=== PATIENT | female | born 1955 | race Hispanic/Latino ===

== ENCOUNTER 2018-02-13 12:25 | Observation (INO) | payer MEDICARE, OTHER ==
[~2018-02-13] VITALS: Ht 162.6 cm; Wt 99.8 kg
[2018-02-13] MEDS ORDERED: MORPHINE SULFATE 2 MG/ML SYR IV STA (13:24)
[2018-02-13] MEDS ORDERED: PANTOPRAZOLE 40 MG 10ML VIAL IV STA (13:24)
[2018-02-13] MEDS ORDERED: DIATRIZOATE MEGL/DIATRIZOA SOD 30 ML BTL PO ONE (13:54)
[2018-02-13 14:03] LABS: BASOPHILS # (AUTO) 0.1 (0.0-0.1); BASOPHILS % 0.7 % (0.0-1.0); EOSINOPHILS # (AUTO) 0.1 (0.0-0.4); EOSINOPHILS % 0.8 % (0.0-6.0); HEMATOCRIT 37.5 % (34.2-44.1); HEMOGLOBIN 13.1 g/dL (12.0-16.0); LYMPHOCYTES # (AUTO) 2.5 (1.0-3.2); MEAN CORPUSCULAR HEMOGLOBIN 29.7 pg (28-32); MEAN CORPUSCULAR HGB CONC 34.9 g/dL (31-35); MONOCYTES # (AUTO) 0.4 (0.2-0.8); MONOCYTES % 5.2 % (4.4-11.3); NEUTROPHILS # (AUTO) 4.3 (2.1-6.9); NEUTROPHILS % 58.9 % (38.7-80.0); PLATELET COUNT 247 x10e3/uL (140-360); RED BLOOD COUNT 4.41 x10e6/uL (3.6-5.1); RED CELL DISTRIBUTION WIDTH 12.5 % (11.7-14.4)
[2018-02-13 14:12] LABS: INR 0.98; PROTHROMBIN TIME 12.2 seconds (11.9-14.5)
[2018-02-13 14:21] LABS: ALBUMIN 3.6 g/dL (3.5-5.0); ALBUMIN/GLOBULIN RATIO 1.2 (0.8-2.0); ANION GAP 11.9 mmol/L (8-16); CALCIUM 9.3 mg/dL (8.4-10.2); POTASSIUM 3.9 mmol/L (3.5-5.1)
[2018-02-13] MEDS ORDERED: SODIUM CHLORIDE 0.9% 1000ML 1,000 ML IV SCH (14:45)
[2018-02-13] MEDS ORDERED: SODIUM CHLORIDE 0.9% 1000ML 1,000 ML ONE (14:52)
--- NOTE | 2018-02-13 16:21 | Diagnostic Imaging Report ---
EXAM: CT Abdomen and Pelvis WITH contrast INDICATION: \S\Lower abdominal pain, GI Bleed \S\[id number] \S\1545 COMPARISON: CT dated 06/19/2010 TECHNIQUE: Abdomen and pelvis were scanned utilizing a multidetector helical scanner from the lung base to the pubic symphysis after administration of IV contrast. Coronal and sagittal reformations were obtained. Routine protocol was performed. Scan was performed when during portal venous phase. IV CONTRAST: 100 mL of Isovue-370 ORAL CONTRAST: Gastroview COMPLICATIONS: None RADIATION DOSE: Total DLP: 830.79 mGy*cm Estimated effective dose: (DLP x 0.015 x size factor) mSv CTDIvol has been reviewed. It is below the limits set by the Radiation Protocol Committee (RPC). FINDINGS: LINES and TUBES: None. LOWER THORAX: Mild dependent atelectasis. HEPATOBILIARY: Multiple hypodensities, measuring up to 3.1 cm in the left hepatic lobe (previously 1.1 cm), with internal attenuation of simple fluid, likely cysts. No biliary ductal dilation. GALLBLADDER: No radio-opaque stones or sludge. No wall thickening. SPLEEN: No splenomegaly. PANCREAS: No focal masses or ductal dilatation. ADRENALS: No adrenal nodules KIDNEYS/URETERS: Kidneys enhance symmetrically. No hydronephrosis. No cystic or solid mass lesions. No stones. GI TRACT: No abnormal distention, wall thickening, or evidence of bowel obstruction. There are scattered diverticula within the colon without evidence of diverticulitis. Appendix is normal. PELVIC ORGANS/BLADDER: Hysterectomy. LYMPH NODES: No lymphadenopathy. VESSELS: Unremarkable. PERITONEUM / RETROPERITONEUM: No free air or fluid. BONES: Unremarkable. SOFT TISSUES: Small fat-containing umbilical hernia. IMPRESSION: 1. No acute inflammatory process in the abdomen/pelvis. 2. Redemonstration of multiple hepatic cysts, increased in size when compared to prior CT. Signed by: Dr. Jamari Harris MD on 02/13/2018 4:18 PM
[2018-02-13] MEDS ORDERED: ONDANSETRON HCL INJ 2 MG/ML VIAL IV STA (17:18)
[2018-02-13] MEDS ORDERED: MORPHINE SULFATE 4 MG/ML SYR IV PRN (17:30)
[2018-02-13] MEDS ORDERED: MORPHINE SULFATE 2 MG/ML SYR IV PRN (17:30)
[2018-02-13] MEDS ORDERED: IOPAMIDOL 370 MG/ML 200 ML INFUS..BTL INJ ONE (17:35)
[2018-02-13] MEDS ORDERED: SODIUM CHLORIDE 0.9% 50ML 50 ML ONE (17:35)
[2018-02-13] MEDS ORDERED: CYMBALTA60 MG PO (17:58)
[2018-02-13] MEDS ORDERED: ABILIFY5 MG PO (17:58)
[2018-02-13] MEDS ORDERED: ALPRAZOLAM0.5 MG PO (17:58)
[2018-02-13] MEDS ORDERED: QUETIAPINE FUM400 MG PO (17:58)
[2018-02-13] MEDS ORDERED: ZOLPIDEM TARTRA10 MG PO (18:01)
--- OUTSIDE RECORDS SUMMARY | 2018-02-13 18:19 | XMS REPORT ---
Author [facility] Address Unknown Phone Unavailable Care Team Providers Care [facility] Administrator Name Role Phone BELÉN TURNER Unavailable Unavailable Problems This patient has no known problems. Allergies, Adverse Reactions, Alerts This patient has no known allergies or adverse reactions. Medications This patient has no known medications. Results Test Description Test Time Test Comments Text Results Atomic Results Result Comments CT ABDOMEN/PELVIS W [place] [address] Patient Name: TRENT MACDONALD MR #: [id number] : 1955 Age/Sex: 62/F Req #: [id number] Adm Physician: Ordered by: GLENDA BERMUDEZ [employer] SUPERVISOR Report #: [id number] Location: ER Room/Bed: Procedure: [id number] CT/CT ABDOMEN/PELVIS W Exam Date: 02/13/18 Exam Time: 1545 REPORT STATUS: Signed EXAM: CT Abdomen and Pelvis WITH contrast INDICATION: COMPARISON: CT dated TECHNIQUE: Abdomen and pelvis were scanned utilizing a multidetector helical scanner from the lung base to the pubic symphysis after administration of IV contrast. Coronal and sagittal reformations were obtained. Routine protocol was performed. Scan was performed when during portal venous phase. IV CONTRAST: 100 mL of Isovue-370 ORAL CONTRAST: Gastroview COMPLICATIONS: None RADIATION DOSE: Total DLP: 830.79 mGy*cm Estimated effective dose: (DLP x 0.015 x size factor) mSv CTDIvol has been reviewed. It is below the limits set by the Radiation Protocol Committee (RPC). FINDINGS: LINES and TUBES : None. LOWER THORAX: Mild dependent atelectasis. HEPATOBILIARY: Multiple hypodensities, measuring up to 3.1 cm in the left hepatic lobe ( previously 1.1 cm), with internal attenuation of simple fluid, likely cysts. No biliary ductal dilation. GALLBLADDER: No radio-opaque stones or sludge. No wall thickening. SPLEEN: No splenomegaly. PANCREAS: No focal masses or ductal dilatation. ADRENALS: No adrenal nodules KIDNEYS/URETERS: Kidneys enhance symmetrically. No hydronephrosis. No cystic or solid mass lesions. No stones. GI TRACT: No abnormal distention, wall thickening, or evidence of bowel obstruction. There are scattered diverticula within the colon without evidence of diverticulitis. Appendix is normal. PELVIC ORGANS/BLADDER: Hysterectomy. LYMPH NODES: No lymphadenopathy. VESSELS: Unremarkable. PERITONEUM / RETROPERITONEUM: No free air or fluid. BONES: Unremarkable. SOFT TISSUES: Small fat- containing umbilical hernia. IMPRESSION: 1. No acute inflammatory process in the abdomen/pelvis. 2. Redemonstration of multiple hepatic cysts, increased in size when compared to prior CT. Signed by: Dr. Jamari Mercado MD on 02/13/2018 4:18 PM Dictated By: JAMARI MERCADO MD [id number] Transcribed By: IDALIA on 02/13/18 1618 COPY TO: GLENDA BERMUDEZ NP
[2018-02-13 18:41] LABS: BASOPHILS # (AUTO) 0.1 (0.0-0.1); BASOPHILS % 0.6 % (0.0-1.0); EOSINOPHILS # (AUTO) 0.1 (0.0-0.4); HEMATOCRIT 36.7 % (34.2-44.1); HEMOGLOBIN 12.7 g/dL (12.0-16.0); LYMPHOCYTES # (AUTO) 2.9 (1.0-3.2); LYMPHOCYTES % 36.8 % (18.0-39.1); MEAN CORPUSCULAR HEMOGLOBIN 29.7 pg (28-32); MEAN CORPUSCULAR HGB CONC 34.6 g/dL (31-35); MEAN CORPUSCULAR VOLUME 85.9 fL (81-99); MONOCYTES # (AUTO) 0.4 (0.2-0.8); MONOCYTES % 4.5 % (4.4-11.3); NEUTROPHILS # (AUTO) 4.4 (2.1-6.9); NEUTROPHILS % 56.6 % (38.7-80.0); PLATELET COUNT 242 x10e3/uL (140-360); RED BLOOD COUNT 4.27 x10e6/uL (3.6-5.1); RED CELL DISTRIBUTION WIDTH 12.6 % (11.7-14.4)
[2018-02-14] VITALS (10 sets, daily range): BP systolic 138–184; BP diastolic 69–100
[2018-02-14 00:33] LABS: BASOPHILS % 0.5 % (0.0-1.0); EOSINOPHILS # (AUTO) 0.1 (0.0-0.4); EOSINOPHILS % 1.2 % (0.0-6.0); HEMATOCRIT 36.4 % (34.2-44.1); HEMOGLOBIN 12.6 g/dL (12.0-16.0); LYMPHOCYTES # (AUTO) 3.1 (1.0-3.2); LYMPHOCYTES % 41.1 % (18.0-39.1); MEAN CORPUSCULAR HEMOGLOBIN 29.8 pg (28-32); MEAN CORPUSCULAR HGB CONC 34.6 g/dL (31-35); MEAN CORPUSCULAR VOLUME 86.1 fL (81-99); MONOCYTES # (AUTO) 0.4 (0.2-0.8); MONOCYTES % 5.4 % (4.4-11.3); NEUTROPHILS # (AUTO) 3.8 (2.1-6.9); NEUTROPHILS % 51.5 % (38.7-80.0); PLATELET COUNT 201 x10e3/uL (140-360); RED BLOOD COUNT 4.23 x10e6/uL (3.6-5.1); RED CELL DISTRIBUTION WIDTH 12.6 % (11.7-14.4)
[2018-02-14 06:49] LABS: BASOPHILS % 0.6 % (0.0-1.0); EOSINOPHILS # (AUTO) 0.1 (0.0-0.4); EOSINOPHILS % 1.2 % (0.0-6.0); HEMATOCRIT 37.4 % (34.2-44.1); HEMOGLOBIN 12.6 g/dL (12.0-16.0); LYMPHOCYTES # (AUTO) 2.2 (1.0-3.2); LYMPHOCYTES % 33.1 % (18.0-39.1); MEAN CORPUSCULAR HEMOGLOBIN 29.3 pg (28-32); MEAN CORPUSCULAR HGB CONC 33.7 g/dL (31-35); MONOCYTES # (AUTO) 0.4 (0.2-0.8); MONOCYTES % 5.2 % (4.4-11.3); NEUTROPHILS % 59.6 % (38.7-80.0); PLATELET COUNT 253 x10e3/uL (140-360); RED CELL DISTRIBUTION WIDTH 12.7 % (11.7-14.4)
--- NOTE | 2018-02-14 07:21 | History and Physical ---
PRIMARY CARE PHYSICIAN: Dr. Nakia Godfrey CHIEF COMPLAINT: Bloody stool. HISTORY OF PRESENT ILLNESS: This is a 62-year-old woman with a history of anxiety and depression, who noticed bloody tissue after wiping herself after a bowel movement. The following day the patient noticed a small amount of blood mixed with her stool. Therefore, she came to the hospital. She never had a colonoscopy. She does have associated mid-lower abdominal discomfort/pain. Denies any fever, chills, sweats. Denies any nausea, vomiting or diarrhea. PAST MEDICAL HISTORY: Anxiety disorder, depression, cigarette abuse. PAST SURGICAL HISTORY: Hysterectomy. ALLERGIES: PER ELECTRONIC MEDICAL RECORD. FAMILY HISTORY/SOCIAL HISTORY: The patient is single. She has 3 children. No alcohol or illicits. She smokes a quarter pack of cigarettes per day. MEDICATIONS: Per electronic medical record. REVIEW OF SYSTEMS: Denies any dizziness or chest pain. PHYSICAL EXAMINATION VITAL SIGNS: Reviewed. GENERAL: A tired-appearing woman resting in bed. HEENT: Anicteric. Pupils respond to light. No oral lesions. CARDIOVASCULAR: Normal S1 and S2. LUNGS: Moderate breath sounds. ABDOMEN: Soft and nondistended. She has mild tenderness in the mid-lower abdomen. EXTREMITIES: No edema or calf tenderness. NEUROLOGICAL: Alert and oriented times 3. Moving all extremities. SKIN: Dry. PSYCHIATRIC: Normal affect. LABS: Reviewed. MEDICATIONS: Reviewed. ASSESSMENT AND PLAN: A 62-year-old woman with: 1. Gastrointestinal bleed: Gastroenterology consulted. Intravenous proton pump inhibitor. 2. Acute kidney injury: Rehydrate and reassess. 3. Obesity: Body mass index 37.8. Obtain lipid panel and screen for diabetes. 4. Anxiety disorder: Continue alprazolam. 5. Depression: Continue Seroquel. 6. Prophylaxis: Will use sequential compression devices and proton pump inhibitor. 7. Disposition: Follow up gastroenterology recommendations. Job#: [id number] GENET
[2018-02-14 07:26] LABS: ALANINE AMINOTRANSFERASE 31 IU/L (0-55); ALBUMIN 3.3 g/dL (3.5-5.0); ALBUMIN/GLOBULIN RATIO 1.2 (0.8-2.0); ALKALINE PHOSPHATASE 100 IU/L (40-150); BLOOD UREA NITROGEN 9 mg/dL (7-26); BUN/CREATININE RATIO 11 (6-25); CALCIUM 8.6 mg/dL (8.4-10.2); CARBON DIOXIDE 27 mmol/L (22-29); CHLORIDE 103 mmol/L (98-107); CREATININE, SERUM 0.82 mg/dL (0.57-1.11); EST GLOMERULAR FILTRATION RATE > 60 ML/MIN (60-); GLUCOSE 103 mg/dL (74-118); SODIUM 137 mmol/L (136-145)
[2018-02-14 07:41] LABS: CHOL/HDL RATIO 4.3 (3.0-3.6)
[2018-02-14] MEDS: PANTOPRAZOLE 40 MG 10ML VIAL IV SCH (09:22)
[2018-02-14] MEDS: ALPRAZOLAM 0.5 MG TAB PO SCH ×3 (09:23→21:00)
[2018-02-14 11:15] LABS: BASOPHILS # (AUTO) 0.1 (0.0-0.1); BASOPHILS % 0.7 % (0.0-1.0); EOSINOPHILS # (AUTO) 0.1 (0.0-0.4); EOSINOPHILS % 0.7 % (0.0-6.0); HEMATOCRIT 38.3 % (34.2-44.1); HEMOGLOBIN 13.1 g/dL (12.0-16.0); LYMPHOCYTES # (AUTO) 1.9 (1.0-3.2); LYMPHOCYTES % 27.4 % (18.0-39.1); MEAN CORPUSCULAR HEMOGLOBIN 29.2 pg (28-32); MEAN CORPUSCULAR HGB CONC 34.2 g/dL (31-35); MEAN CORPUSCULAR VOLUME 85.3 fL (81-99); MONOCYTES # (AUTO) 0.3 (0.2-0.8); MONOCYTES % 4.1 % (4.4-11.3); NEUTROPHILS # (AUTO) 4.7 (2.1-6.9); NEUTROPHILS % 66.8 % (38.7-80.0); PLATELET COUNT 256 x10e3/uL (140-360); RED BLOOD COUNT 4.49 x10e6/uL (3.6-5.1); RED CELL DISTRIBUTION WIDTH 12.6 % (11.7-14.4)
[2018-02-14 18:51] LABS: BASOPHILS # (AUTO) 0.1 (0.0-0.1); BASOPHILS % 0.7 % (0.0-1.0); EOSINOPHILS # (AUTO) 0.1 (0.0-0.4); EOSINOPHILS % 0.9 % (0.0-6.0); HEMATOCRIT 38.9 % (34.2-44.1); HEMOGLOBIN 13.6 g/dL (12.0-16.0); LYMPHOCYTES % 26.5 % (18.0-39.1); MEAN CORPUSCULAR HEMOGLOBIN 29.9 pg (28-32); MEAN CORPUSCULAR VOLUME 85.5 fL (81-99); MONOCYTES # (AUTO) 0.3 (0.2-0.8); MONOCYTES % 4.4 % (4.4-11.3); NEUTROPHILS # (AUTO) 5.1 (2.1-6.9); NEUTROPHILS % 67.2 % (38.7-80.0); PLATELET COUNT 274 x10e3/uL (140-360); RED BLOOD COUNT 4.55 x10e6/uL (3.6-5.1); RED CELL DISTRIBUTION WIDTH 12.5 % (11.7-14.4)
[2018-02-14] MEDS ORDERED: PEG (High)/E-LYTE SOLN 4,000 ML BTL PO NR (20:00)
[2018-02-14] MEDS ORDERED: BISACODYL 5 MG TAB EC PO NR (20:00)
[2018-02-14] MEDS ORDERED: ZOLPIDEM TARTRATE 10 MG TAB PO SCH (21:00)
[2018-02-14] MEDS ORDERED: QUETIAPINE FUMARATE 100 MG TAB PO SCH (21:00)
--- NOTE | 2018-02-14 21:50 | Consultation ---
DATE OF CONSULTATION: February 14, 2018 HISTORY: This is a 62-year-old who presented to the hospital because of some abdominal discomfort and pain, followed by rectal bleeding which she described as bright red blood. Her workup so far revealed CBC was okay and CAT scan was essentially normal. She never had colonoscopy in the past. OTHER MEDICAL PROBLEMS: Significant for history of anxiety disorder, depression. She is status post hysterectomy. MEDICATIONS: Currently is on pantoprazole and Seroquel and Ambien as well as Xanax. SOCIAL HISTORY: No alcohol use. FAMILY HISTORY: Noncontributory. REVIEW OF SYSTEMS: Denies any chest pain. No shortness of breath. Denies any dysphagia or odynophagia. Denies any dysuria, hematuria, or any kind of syncopal episodes. PHYSICAL EXAMINATION: GENERAL: Patient is awake, alert, appeared to be stable, not in acute distress at this point. VITAL SIGNS: Afebrile currently with stable vital signs. HEAD, EYES, EARS, NOSE, AND THROAT: Normocephalic, atraumatic. Sclerae are anicteric. NECK: Supple. HEART: Regular. LUNGS: Clear. ABDOMEN: Soft. There is no distention at this point. There is no tenderness at this point. There is no rebound or mass. EXTREMITIES: No cyanosis, no clubbing. LAB VALUES: Significant for CBC was normal and CMP was normal. PT and INR normal. Hemoccult-positive stool. CAT scan is negative. IMPRESSION: Abdominal pain with some problems with the rectal bleeding. RECOMMENDATIONS: Follow labs and transfuse as needed. We will proceed with colonoscopy for further evaluation and follow clinically. Job#: [id number] cc:MD DR. WILEY FIGUEROA AT [facility]
[2018-02-14] MEDS ORDERED: CITRATE OF MAGNESIA 300ML BOTTLE PO ONE (22:30)
[2018-02-14] MEDS ORDERED: ONDANSETRON HCL INJ 2 MG/ML VIAL IV PRN (22:30)
[2018-02-15] VITALS: BP 151/65
[2018-02-15 04:00] VITALS: BP 159/74
[2018-02-15] MEDS ORDERED: SOD PHOSPHATE/SOD BIPHOSPHATE ENEMA 132 ML BTL PR ONE (05:00)
[2018-02-15 06:53] LABS: BASOPHILS # (AUTO) 0.1 (0.0-0.1); BASOPHILS % 0.7 % (0.0-1.0); EOSINOPHILS % 0.6 % (0.0-6.0); HEMATOCRIT 39.8 % (34.2-44.1); HEMOGLOBIN 13.5 g/dL (12.0-16.0); LYMPHOCYTES # (AUTO) 2.1 (1.0-3.2); LYMPHOCYTES % 29.5 % (18.0-39.1); MEAN CORPUSCULAR HEMOGLOBIN 29.4 pg (28-32); MEAN CORPUSCULAR HGB CONC 33.9 g/dL (31-35); MEAN CORPUSCULAR VOLUME 86.7 fL (81-99); MONOCYTES # (AUTO) 0.4 (0.2-0.8); MONOCYTES % 5.6 % (4.4-11.3); NEUTROPHILS # (AUTO) 4.6 (2.1-6.9); NEUTROPHILS % 63.3 % (38.7-80.0); PLATELET COUNT 276 x10e3/uL (140-360); RED BLOOD COUNT 4.59 x10e6/uL (3.6-5.1); RED CELL DISTRIBUTION WIDTH 12.6 % (11.7-14.4)
[2018-02-15] MEDS ORDERED: PANTOPRAZOLE SO40 MG PO (07:00)
[2018-02-15] MEDS ORDERED: LOPRESSOR25 MG PO (07:00)
--- NOTE | 2018-02-15 07:14 | Progress Note ---
DATE: February 15, 2018 TIME: 6:58 a.m. OVERNIGHT: No events. REVIEW OF SYSTEMS: Denies any dizziness or chest pain. PHYSICAL EXAMINATION VITAL SIGNS: Reviewed. GENERAL: A tired-appearing woman resting in bed. HEENT: Anicteric. CARDIOVASCULAR: Normal S1 and S2. LUNGS: Moderate breath sounds. ABDOMEN: Soft, nontender and nondistended. The patient has mild tenderness in the mid-lower abdomen. EXTREMITIES: No edema or calf tenderness. NEUROLOGICAL: Alert and appropriate. Moving all extremities. LABS: Reviewed. MEDICATIONS: Reviewed. ASSESSMENT: A 62-year-old woman with: 1. Gastrointestinal bleed. 2. Acute kidney injury. 3. Obesity: Body mass index 37.8. 4. Anxiety disorder. 5. Depression. PLAN 1. Endoscopy pending. 2. Continue PPI. 3. Screening for diabetes is negative. Hemoglobin A1c is 5.5, LDL 142 and triglycerides 154. 4. Prophylaxis. Continue regimen. 5. Disposition. Discharge if endoscopy negative later today. Job#: [id number] [place]
[2018-02-15 07:29] VITALS: BP 175/69
[2018-02-15] MEDS: ALPRAZOLAM 0.5 MG TAB PO SCH ×2 (08:50→15:48)
[2018-02-15] MEDS ORDERED: METOPROLOL TARTRATE 25 MG TAB PO SCH (09:00)
[2018-02-15] MEDS ORDERED: MIDAZOLAM HCL 2 MG/2 ML VIAL ONE ×2 (10:13)
[2018-02-15] MEDS ORDERED: FENTANYL CITRATE/PF 100MCG/2 ML INJ ONE ×2 (10:13)
[2018-02-15] MEDS: PANTOPRAZOLE 40 MG 10ML VIAL IV SCH (10:41)
[2018-02-15 10:42] VITALS: BP 175/69
[2018-02-15 11:14] VITALS: BP 183/75
[2018-02-15] MEDS ORDERED: METOPROLOL TARTRATE 50 MG TAB PO STA (14:34)
[2018-02-15] MEDS ORDERED: METOPROLOL TARTRATE 50 MG TAB PO ONE (15:15)
[2018-02-15 15:36] VITALS: BP 140/61
[2018-02-15] MEDS ORDERED: LIDOCAINE HCL 2% LOCAL INJ 5 ML SDV VIAL INJ ONE (16:46)
[2018-02-15] MEDS ORDERED: PROPOFOL IV EMULSION 10 MG/ML 20 ML VIAL ONE (16:46)
[2018-02-15] MEDS ORDERED: METOPROLOL TARTRATE 50 MG TAB PO SCH (21:00)
== END 2018-02-15 17:10 | disposition home or self-care (01) ==
LOC: ER 12:25 → ERHOLD 18:16 → IMCU 02-14 01:58
PROVIDERS: ADMIT Internal Medicine; ATTEND Internal Medicine
DX: D12.2 Benign neoplasm of ascending colon (principal); D12.5 Benign neoplasm of sigmoid colon; K63.5 Polyp of colon; K92.1 Melena; N17.9 Acute kidney failure, unspecified; E66.9 Obesity, unspecified; Z68.37 Body mass index [BMI] 37.0-37.9, adult; F32.9 Major depressive disorder, single episode, unspecified; K57.30 Diverticulosis of large intestine without perforation or abscess without bleeding; K64.8 Other hemorrhoids; F41.9 Anxiety disorder, unspecified; I10 Essential (primary) hypertension
CPT/HCPCS: 36415 ×3; 45385; 74177; 80053 ×2; 80061; 82270; 83036; 85025 ×3; 85610; 85730; 86850; 86900; 88305; 99284; G0378 ×3; J2001; J2250; J2270; J2405 ×2; J7030; Q9967; 45381

== ENCOUNTER 2019-01-18 14:28 | Emergency (ER) | payer MEDICARE ==
[~2019-01-18] VITALS: Ht 162.6 cm; Wt 99.8 kg
[~2019-01-18 14:28] MED LIST: ABILIFY5 MG PO; ALPRAZOLAM0.5 MG PO; CYMBALTA60 MG PO; LOPRESSOR25 MG PO; PANTOPRAZOLE SO40 MG PO; QUETIAPINE FUM400 MG PO; ZOLPIDEM TARTRA10 MG PO
--- NOTE | 2019-01-18 17:23 | Diagnostic Imaging Report ---
Foot complete CPT code: 21167 Indication: ^FALL ^[id number] ^1520 Technique: A.P., oblique and lateral views of the right foot obtained. Comparison: None Findings: The area of pain is not indicated or marked. Calcaneus is intact and normal in morphology. The midfoot is intact. There is a screw in the first metatarsal from hallux repair. The hardware is intact without surrounding lucency to suggest loosening. No evidence of displaced fracture or dislocation involving any of the digits. No radiopaque foreign bodies in the soft tissues. IMPRESSION: No acute traumatic pathology. Postoperative changes of the first digit as described above. Signed by: Dr. Tita Armstrong MD on 01/18/2019 5:19 PM
[2019-01-18] MEDS ORDERED: TRAMADOL HCL 50 MG TAB PO ONE (17:30)
[2019-01-18] MEDS ORDERED: ULTRAM50 MG PO (17:33)
[2019-01-18 17:40] VITALS: BP 169/81
== END 2019-01-18 17:42 | disposition home or self-care (01) ==
LOC: ER 14:28
DX: S90.01XA Contusion of right ankle, initial encounter (principal); S93.401A Sprain of unspecified ligament of right ankle, initial encounter; X50.1XXA Overexertion from prolonged static or awkward postures, initial encounter; Y93.89 Activity, other specified; Y92.018 Other place in single-family (private) house as the place of occurrence of the external cause; I10 Essential (primary) hypertension; F41.9 Anxiety disorder, unspecified; F32.9 Major depressive disorder, single episode, unspecified; Z83.3 Family history of diabetes mellitus; Z82.49 Family history of ischemic heart disease and other diseases of the circulatory system
CPT/HCPCS: 99283

== ENCOUNTER 2019-02-09 19:50 | Emergency (ER) | payer MEDICARE, OTHER ==
[~2019-02-09] VITALS: Ht 162.6 cm; Wt 99.8 kg
[~2019-02-09 19:50] MED LIST changes: +ULTRAM50 MG PO
[2019-02-09] MEDS ORDERED: FAMOTIDINE 20 MG/2 ML VIAL IV STA (20:32)
[2019-02-09] MEDS ORDERED: ONDANSETRON HCL INJ 2MG/ML 2ML 2 MG/ML VIAL IV STA (20:32)
[2019-02-09] MEDS ORDERED: SODIUM CHLORIDE 0.9% 1000ML 1,000 ML IV SCH ×2 (20:45→22:15)
--- NOTE | 2019-02-09 21:11 | Diagnostic Imaging Report ---
EXAMINATION: CXR 2 VIEW - HOPD INDICATION: Fever, nausea, vomiting ^[id number] ^2099 COMPARISON: None FINDINGS: PA and lateral views TUBES and LINES: None. LUNGS: Lungs are well inflated. There is no evidence of pneumonia or pulmonary edema. PLEURA: No pleural effusion or pneumothorax. HEART AND MEDIASTINUM: The cardiomediastinal silhouette is unremarkable.. BONES AND SOFT TISSUES: No focal osseous lesions. Soft tissues are unremarkable. UPPER ABDOMEN: No free air under the diaphragm. IMPRESSION: No acute thoracic abnormality. Signed by: Dr. Tita Armstrong MD on 02/09/2019 9:08 PM
[2019-02-09] MEDS ORDERED: LORAZEPAM INJ 2 MG/ML VIAL IV ONE (22:15)
[2019-02-09] MEDS ORDERED: CEFTRIAXONE SOD 2 GM/NS 100 ML 100 ML IV ONE (22:45)
== END 2019-02-10 00:10 | disposition home or self-care (01) ==
LOC: FSED 19:50
DX: R11.2 Nausea with vomiting, unspecified (principal); E86.0 Dehydration; I10 Essential (primary) hypertension; F20.9 Schizophrenia, unspecified; F32.9 Major depressive disorder, single episode, unspecified; F41.0 Panic disorder [episodic paroxysmal anxiety]; F17.200 Nicotine dependence, unspecified, uncomplicated; K76.0 Fatty (change of) liver, not elsewhere classified; R73.9 Hyperglycemia, unspecified
CPT/HCPCS: 71046; 80053; 83880; 84484; 85025; 85610; 87400; 93005; 99284; J2405; J7030

== ENCOUNTER 2020-11-17 12:51 | Emergency (ER) | payer MEDICARE ==
[~2020-11-17] VITALS: Ht 162.6 cm; Wt 103.9 kg
[2020-11-17] MEDS ORDERED: SODIUM CHLORIDE 0.9% 1000ML 1,000 ML IV STA (13:44)
[2020-11-17] MEDS ORDERED: ONDANSETRON HCL INJ 2MG/ML 2ML 2 MG/ML VIAL IV STA ×2 (13:44→13:51)
[2020-11-17] MEDS ORDERED: FAMOTIDINE 20 MG/2 ML VIAL IV ONE (13:50)
[2020-11-17] MEDS ORDERED: SODIUM CHLORIDE 0.9% 1000ML 1,000 ML ONE ×2 (13:50→16:22)
[2020-11-17] MEDS ORDERED: ONDANSETRON HCL INJ 2MG/ML 2ML 2 MG/ML VIAL ONE ×2 (13:50→14:19)
[2020-11-17] MEDS ORDERED: FAMOTIDINE 20 MG/2 ML VIAL IV STA (13:51)
[2020-11-17] MEDS ORDERED: LORAZEPAM INJ 2 MG/ML VIAL IV ONE ×2 (14:15→16:45)
[2020-11-17] MEDS ORDERED: LORAZEPAM INJ 2 MG/ML VIAL ONE (14:19)
[2020-11-17] MEDS ORDERED: KETOROLAC TROMETHAMINE 30 MG/ML VIAL ONE (16:22)
[2020-11-17] MEDS ORDERED: KETOROLAC TROMETHAMINE 30 MG/ML VIAL IV STA (16:31)
[2020-11-17] MEDS ORDERED: IBUPROFEN800 MG PO (16:37)
[2020-11-17] MEDS ORDERED: ASPIRIN EC81 MG PO (16:37)
[2020-11-17] MEDS ORDERED: MULTI-VITAMIN1 EACH PO (16:37)
[2020-11-17] MEDS ORDERED: SODIUM CHLORIDE 0.9% 1000ML 1,000 ML IV SCH (16:45)
[2020-11-17] MEDS ORDERED: ATIVAN1 MG PO (17:07)
[2020-11-17] MEDS ORDERED: ONDANSETRON ODT8 MG SL (17:07)
[2020-11-17] MEDS ORDERED: PREDNISONE20 MG PO (17:07)
[2020-11-17] MEDS ORDERED: METHYLPREDNISOLONE SOD SUCC 125 MG/2ML VIAL IV ONE (17:15)
[2020-11-17] MEDS ORDERED: LABETALOL HCL 5 MG/ML 20ML VIAL IV STA (17:16)
[2020-11-17] MEDS ORDERED: METHYLPREDNISOLONE SOD SUCC 125 MG/2ML VIAL ONE (17:20)
[2020-11-17] MEDS ORDERED: LISINOPRIL40 MG PO (17:25)
[2020-11-17] MEDS ORDERED: LABETALOL HCL 20 ML ONE (17:26)
[2020-11-17 17:44] VITALS: BP 199/80
[2020-11-17] MEDS ORDERED: NITROGLYCERIN 0.4 MG SUBL SL ONE (17:45)
[2020-11-17] MEDS ORDERED: PROMETHAZINE HCL (IM) 25 MG/ML VIAL IM ONE ×2 (17:45→17:48)
[2020-11-17] MEDS ORDERED: NITROGLYCERIN 0.4 MG SUBL ONE (17:47)
== END 2020-11-17 17:55 | disposition home or self-care (01) ==
LOC: FSED 13:00
DX: F41.0 Panic disorder [episodic paroxysmal anxiety] (principal); R11.2 Nausea with vomiting, unspecified; R51.9 Headache, unspecified; E86.0 Dehydration; I10 Essential (primary) hypertension; K76.9 Liver disease, unspecified; N18.9 Chronic kidney disease, unspecified; F31.9 Bipolar disorder, unspecified
CPT/HCPCS: 70450; 74176; 80048; 80076; 81003; 85025; 96374; 96375; 96376; 99284; J1885; J2060; J2405; J2550; J2930; J3490; J7030

== ENCOUNTER 2021-03-23 14:57 | Emergency (ER) | payer MEDICARE ==
[~2021-03-23] VITALS: Ht 162.6 cm; Wt 103.9 kg
[~2021-03-23 14:57] MED LIST changes: +ASPIRIN EC81 MG PO; +ATIVAN1 MG PO; +IBUPROFEN800 MG PO; +LISINOPRIL40 MG PO; +MULTI-VITAMIN1 EACH PO; +ONDANSETRON ODT8 MG SL; +PREDNISONE20 MG PO
[2021-03-23] MEDS ORDERED: KETOROLAC TROMETHAMINE 30 MG/ML VIAL IV ONE (15:11)
[2021-03-23 15:28] LABS: BASOPHILS % 0.3 % (0.0-1.0); EOSINOPHILS # (AUTO) 0.1 (0.0-0.4); EOSINOPHILS % 0.4 % (0.0-6.0); HEMATOCRIT 37.2 % (34.2-44.1); HEMOGLOBIN 12.6 g/dL (12.0-16.0); LYMPHOCYTES # (AUTO) 3.6 (1.0-3.2); LYMPHOCYTES % 30.2 % (18.0-39.1); MEAN CORPUSCULAR HEMOGLOBIN 30.1 pg (28-32); MEAN CORPUSCULAR HGB CONC 33.9 g/dL (31-35); MONOCYTES # (AUTO) 0.5 (0.2-0.8); MONOCYTES % 3.9 % (4.4-11.3); NEUTROPHILS # (AUTO) 7.6 (2.1-6.9); NEUTROPHILS % 64.7 % (38.7-80.0); PLATELET COUNT 313 x10e3/uL (140-360); RED BLOOD COUNT 4.18 x10e6/uL (3.6-5.1); RED CELL DISTRIBUTION WIDTH 12.9 % (11.7-14.4)
[2021-03-23 15:53] LABS: ALBUMIN 4.2 g/dL (3.5-5.0); ALBUMIN/GLOBULIN RATIO 1.6 (0.8-2.0); ANION GAP 14.9 mmol/L (8-16); CALCIUM 8.9 mg/dL (8.4-10.2); CREATININE, SERUM 0.95 mg/dL (0.57-1.11); POTASSIUM 3.9 mmol/L (3.5-5.1)
[2021-03-23 17:01] VITALS: BP 146/65
== END 2021-03-23 17:07 | disposition home or self-care (01) ==
LOC: ER 15:11
DX: S16.1XXA Strain of muscle, fascia and tendon at neck level, initial encounter (principal); M79.602 Pain in left arm; M25.512 Pain in left shoulder; I12.9 Hypertensive chronic kidney disease with stage 1 through stage 4 chronic kidney disease, or unspecified chronic kidney disease; N18.9 Chronic kidney disease, unspecified; F31.9 Bipolar disorder, unspecified; K76.0 Fatty (change of) liver, not elsewhere classified; K21.9 Gastro-esophageal reflux disease without esophagitis; F41.0 Panic disorder [episodic paroxysmal anxiety]; Z79.82 Long term (current) use of aspirin; Z79.899 Other long term (current) drug therapy; X58.XXXA Exposure to other specified factors, initial encounter
CPT/HCPCS: 36415; 71045; 80053; 84484; 85025; 93005; 99284; J1885

== ENCOUNTER 2021-06-10 16:43 | Emergency (ER) | payer MEDICARE ==
[~2021-06-10] VITALS: Ht 162.6 cm; Wt 129.3 kg
[2021-06-10 17:50] LABS: BASOPHILS # (AUTO) 0.1 (0.0-0.1); BASOPHILS % 0.7 % (0.0-1.0); HEMATOCRIT 40.5 % (34.2-44.1); HEMOGLOBIN 13.6 g/dL (12.0-16.0); LYMPHOCYTES # (AUTO) 1.6 (1.0-3.2); MEAN CORPUSCULAR HGB CONC 33.6 g/dL (31-35); MEAN CORPUSCULAR VOLUME 89.2 fL (81-99); MONOCYTES # (AUTO) 0.2 (0.2-0.8); MONOCYTES % 2.1 % (4.4-11.3); NEUTROPHILS # (AUTO) 9.4 (2.1-6.9); NEUTROPHILS % 82.5 % (38.7-80.0); PLATELET COUNT 362 x10e3/uL (140-360); RED BLOOD COUNT 4.54 x10e6/uL (3.6-5.1); RED CELL DISTRIBUTION WIDTH 12.4 % (11.7-14.4)
[2021-06-10 18:02] LABS: ALBUMIN 4.7 g/dL (3.5-5.0); ALBUMIN/GLOBULIN RATIO 1.5 (0.8-2.0); AMYLASE 37 U/L (25-125); ANION GAP 20.9 mmol/L (8-16); CALCIUM 9.9 mg/dL (8.4-10.2); CREATININE, SERUM 0.91 mg/dL (0.57-1.11); LIPASE 16 U/L (8-78); POTASSIUM 3.9 mmol/L (3.5-5.1)
[2021-06-10 18:53] LABS: CLARITY,URINE SL CLOUDY (CLEAR); COLOR,URINE AMBER (YELLOW); KETONES,URINE 2+ (NEGATIVE); LEUKOCYTE ESTERASE ,URINE NEGATIVE (NEGATIVE); NITRITE,URINE NEGATIVE (NEGATIVE); PROTEIN,URINE DIPSTICK 2+ (NEGATIVE); URINE UROBILINOGEN 0.2 mg/dL (0.2 - 1)
[2021-06-10 19:03] LABS: BACTERIA,URINE MODERATE /HPF; EPITHELIAL CELLS,URINE MODERATE /LPF
[2021-06-10] MEDS ORDERED: ONDANSETRON HCL INJ 2MG/ML 2ML 2 MG/ML VIAL IV STA (20:01)
[2021-06-10] MEDS ORDERED: SODIUM CHLORIDE 0.9% 1000ML 1,000 ML ONE (20:11)
[2021-06-10] MEDS ORDERED: SODIUM CHLORIDE 0.9% 1000ML 1,000 ML IV ONE (20:15)
[2021-06-10] MEDS ORDERED: SODIUM CHLORIDE 0.9% 100 ML ONE (20:56)
[2021-06-10] MEDS ORDERED: IOPAMIDOL 370 MG/ML 200 ML INFUS..BTL INJ ONE (20:56)
[2021-06-10] MEDS ORDERED: PROMETHAZINE HCL (IM) 25 MG/ML VIAL IM ONE (21:30)
[2021-06-10] MEDS ORDERED: PROMETHAZINE 25MG/SOD CHL 0.9% 50 ML IV ONE (21:33)
== END 2021-06-10 23:00 | disposition home or self-care (01) ==
LOC: ER 20:01
DX: R11.2 Nausea with vomiting, unspecified (principal); R73.9 Hyperglycemia, unspecified; K57.90 Diverticulosis of intestine, part unspecified, without perforation or abscess without bleeding; K76.0 Fatty (change of) liver, not elsewhere classified; Z20.822 Contact with and (suspected) exposure to COVID-19
CPT/HCPCS: 36415; 74177; 80053; 81001; 82150; 83690; 85025; 93005; 99284; J2405; J2550; J7030; J7050; Q9967; U0002